=== PATIENT | female | born 1950 | race Caucasian/White ===

== ENCOUNTER → 2016-08-28 | Outpatient (CLI) | payer OTHER ==
[2016-08-28 08:18] LABS: ALANINE AMINOTRANSFERASE 33 U/L (9-52); ALBUMIN 4.5 g/dL (3.5-5.0); ALKALINE PHOSPHATASE 69 U/L (38-126); ANION GAP 12 (5-19); ASPARTATE AMINO TRANSFERASE 21 U/L (14-36); BILIRUBIN,DIRECT 0.1 mg/dL (0.0-0.4); BILIRUBIN,TOTAL 0.3 mg/dL (0.2-1.3); BLOOD UREA NITROGEN 20 mg/dL (7-20); CALCIUM 9.9 mg/dL (8.4-10.2); CARBON DIOXIDE 27 mmol/L (22-30); CHLORIDE 104 mmol/L (98-107); GLUCOSE 169 mg/dL (75-110); POTASSIUM 4.4 mmol/L (3.6-5.0); SODIUM 142.8 mmol/L (137-145)
== END ==
LOC: OD 07:00
PROVIDERS: ATTEND Internal Medicine
DX: I10 Essential (primary) hypertension (principal); E11.9 Type 2 diabetes mellitus without complications
CPT/HCPCS: 36415; 80053; 83036

== ENCOUNTER → 2017-01-02 | Outpatient (CLI) | payer OTHER ==
--- NOTE | 2017-01-02 14:19 | RADIOLOGY REPORT (SQ) ---
EXAM DESCRIPTION: MRI LT LOWER JOINT WITHOUT COMPLETED DATE/TIME: 01/02/2017 8:56 am REASON FOR STUDY: UNSPECIFIED INTERNAL DERANGEMENT OF LEFT KNEE M23.92 UNSPECIFIED INTERNAL DERANGE MENT OF LEFT KNEE COMPARISON: None. TECHNIQUE: Rightknee images acquired and stored on PACS. Multiplanar images include fat sensitive s equences as T1, water sensitive sequences as FST2 or STIR, cartilage sensitive sequences as FSPD, and gradient echo sequences. LIMITATIONS: None. FINDINGS: JOINT AND BURSAE: Small suprapatellar knee joint effusion. Huge White's cyst internal sep tations, 10 cm craniocaudad x 3.5 cm AP x 2 cm transverse. BONE CORTEX AND MARROW: No alteration of signal to suggest marrow replacement. No worrisome bone lesi ons. No occult fracture. ACL: Intact. No degeneration or ganglion cyst. PCL: Intact. MCL: Intact. No periligamentous edema or fluid. LCL: Intact. No periligamentous edema or fluid. MEDIAL MENISCUS: There is diffuse abnormal increased intrameniscal signal in the mid body and posteri or horn medial meniscus, with a tear of the inferior articular surface best shown on sagittal images 3-7. No parameniscal cyst. LATERAL MENISCUS: No tears. No abnormal signal. MEDIAL COMPARTMENT: High-grade chondromalacia with a [id number] appearance, reactive subcortical ed glenny in the medial femoral condyle and medial tibial plateau weight-bearing surfaces. This is best sh own on coronal T2 image 14 through 17. Minimal medial compartment bony spurring. LATERAL COMPARTMENT: Cartilage preserved. No bone bruises or reactive marrow edema. No osteophytes. PATELLA: No chondromalacia. No subchondral cysts. Medial and lateral retinacula intact. EXTENSOR MECHANISM: Intact. Quadriceps and patella tendons normal. SOFT TISSUES: Adjacent muscles and subcutaneous tissues normal. Normal flow void in popliteal artery and vein. OTHER: No other significant finding. IMPRESSION: Osteoarthritis medial compartment Degenerative medial meniscal tear Large White's cyst medial popliteal fossa TECHNICAL DOCUMENTATION: JOB ID: [id number] [employer]- All Rights Reserved
== END ==
LOC: RAD 07:44
PROVIDERS: ATTEND Physician Assistant
DX: M23.92 Unspecified internal derangement of left knee (principal)

== ENCOUNTER → 2017-03-16 | Outpatient (CLI) | payer OTHER ==
[2017-03-16 08:26] LABS: ALANINE AMINOTRANSFERASE 36 U/L (9-52); ALBUMIN 4.4 g/dL (3.5-5.0); ALKALINE PHOSPHATASE 75 U/L (38-126); ANION GAP 13 (5-19); ASPARTATE AMINO TRANSFERASE 18 U/L (14-36); BILIRUBIN,DIRECT 0.4 mg/dL (0.0-0.4); BILIRUBIN,TOTAL 0.4 mg/dL (0.2-1.3); BLOOD UREA NITROGEN 27 mg/dL (7-20); CARBON DIOXIDE 26 mmol/L (22-30); CHLORIDE 105 mmol/L (98-107); CHOLESTEROL 173.06 mg/dL (0-200); CREATININE RESULT 0.78 mg/dL (0.52-1.25); Direct HDL 60 mg/dL (>40); GLUCOSE 214 mg/dL (75-110); POTASSIUM 4.9 mmol/L (3.6-5.0); TOTAL PROTEIN 6.9 g/dL (6.3-8.2); TRIGLYCERIDES 122 mg/dL (<150)
[2017-03-16 08:37] LABS: DIRECT LDL 89 mg/dL (<100)
== END ==
LOC: OD 07:11
PROVIDERS: ATTEND Internal Medicine
DX: I10 Essential (primary) hypertension (principal); E78.2 Mixed hyperlipidemia; D03.62 Melanoma in situ of left upper limb, including shoulder; E11.9 Type 2 diabetes mellitus without complications
CPT/HCPCS: 36415; 80053; 80061; 82043; 83036

== ENCOUNTER → 2017-07-26 | Outpatient (CLI) | payer OTHER ==
[2017-07-26 08:25] LABS: ALANINE AMINOTRANSFERASE 34 U/L (9-52); ALBUMIN 4.1 g/dL (3.5-5.0); ALKALINE PHOSPHATASE 58 U/L (38-126); ANION GAP 14 (5-19); ASPARTATE AMINO TRANSFERASE 24 U/L (14-36); BILIRUBIN,DIRECT 0.3 mg/dL (0.0-0.4); BILIRUBIN,TOTAL 0.3 mg/dL (0.2-1.3); BLOOD UREA NITROGEN 21 mg/dL (7-20); CALCIUM 9.9 mg/dL (8.4-10.2); CARBON DIOXIDE 25 mmol/L (22-30); CHLORIDE 104 mmol/L (98-107); GLUCOSE 189 mg/dL (75-110); POTASSIUM 4.4 mmol/L (3.6-5.0); TOTAL PROTEIN 6.8 g/dL (6.3-8.2); TRIGLYCERIDES 82 mg/dL (<150)
[2017-07-26 08:36] LABS: DIRECT LDL 86 mg/dL (<100)
== END ==
LOC: OD 07:11
PROVIDERS: ATTEND Internal Medicine
DX: I10 Essential (primary) hypertension (principal); E78.2 Mixed hyperlipidemia; E11.9 Type 2 diabetes mellitus without complications
CPT/HCPCS: 36415; 80053; 80061; 82043; 83036

== ENCOUNTER → 2018-01-24 | Outpatient (CLI) | payer OTHER ==
[2018-01-24 09:25] LABS: ALANINE AMINOTRANSFERASE 21 U/L (9-52); ALKALINE PHOSPHATASE 60 U/L (38-126); ANION GAP 8 (5-19); ASPARTATE AMINO TRANSFERASE 19 U/L (14-36); BILIRUBIN,DIRECT 0.3 mg/dL (0.0-0.4); BILIRUBIN,TOTAL 0.4 mg/dL (0.2-1.3); BLOOD UREA NITROGEN 18 mg/dL (7-20); CALCIUM 9.1 mg/dL (8.4-10.2); CARBON DIOXIDE 26 mmol/L (22-30); CHLORIDE 106 mmol/L (98-107); CHOLESTEROL 167.13 mg/dL (0-200); GLUCOSE 176 mg/dL (75-110); POTASSIUM 4.3 mmol/L (3.6-5.0); SODIUM 140.2 mmol/L (137-145); TOTAL PROTEIN 6.9 g/dL (6.3-8.2); TRIGLYCERIDES 99 mg/dL (<150)
[2018-01-24 09:36] LABS: DIRECT LDL 87 mg/dL (<100)
== END ==
LOC: OD 07:07
PROVIDERS: ATTEND Internal Medicine
DX: E11.9 Type 2 diabetes mellitus without complications (principal); E78.2 Mixed hyperlipidemia
CPT/HCPCS: 36415; 80053; 80061; 83036

== ENCOUNTER → 2018-08-16 | Outpatient (CLI) | payer OTHER ==
[2018-08-16 07:50] LABS: ABSOLUTE EOSINOPHILS # (AUTO) 0.1 10^3/uL (0.0-0.6); ABSOLUTE MONOCYTES (AUTO) 0.4 10^3/uL (0.1-1.4); ABSOLUTE NEUT (AUTO) 2.1 10^3/uL (1.7-8.2); BASOPHILS % (AUTO) 0.8 % (0-2); HEMATOCRIT 37.5 % (36.0-47.0); HEMOGLOBIN 12.9 g/dL (12.0-15.5); LYMPHOCYTES % (AUTO) 28.8 % (13-45); MEAN CORPUSCULAR HGB CONC 34.6 g/dL (32.0-36.0); MEAN CORPUSCULAR VOLUME 90 fl (80-97); MONOCYTES % (AUTO) 11.9 % (3-13); PLATELET COUNT 237 10^3/uL (150-450); RED BLOOD COUNT 4.17 10^6/uL (3.72-5.28); RED CELL DISTRIBUTION WIDTH 13.5 % (11.5-14.0); SEGMENTED NEUTROPHILS % (AUTO) 56.5 % (42-78); TOTAL CELLS COUNTED % (AUTO) 100 %; WHITE BLOOD COUNT 3.6 10^3/uL (4.0-10.5)
[2018-08-16 08:00] LABS: ALANINE AMINOTRANSFERASE 30 U/L (9-52); ALBUMIN 4.1 g/dL (3.5-5.0); ALKALINE PHOSPHATASE 72 U/L (38-126); ANION GAP 10 (5-19); ASPARTATE AMINO TRANSFERASE 19 U/L (14-36); BILIRUBIN,DIRECT 0.2 mg/dL (0.0-0.4); BILIRUBIN,TOTAL 0.3 mg/dL (0.2-1.3); BLOOD UREA NITROGEN 25 mg/dL (7-20); CALCIUM 9.9 mg/dL (8.4-10.2); CARBON DIOXIDE 28 mmol/L (22-30); CHLORIDE 103 mmol/L (98-107); CHOLESTEROL 151.91 mg/dL (0-200); GLUCOSE 191 mg/dL (75-110); POTASSIUM 4.7 mmol/L (3.6-5.0); SODIUM 140.6 mmol/L (137-145); TOTAL PROTEIN 6.7 g/dL (6.3-8.2); TRIGLYCERIDES 143 mg/dL (<150)
[2018-08-16 08:10] LABS: DIRECT LDL 82 mg/dL (<100)
[2018-08-17 10:38] LABS: MICROALBUMIN URINE 26.6 ug/mL (Not Estab.)
== END ==
LOC: OD 07:05
PROVIDERS: ATTEND Physician Assistant
DX: Z12.11 Encounter for screening for malignant neoplasm of colon (principal); E11.9 Type 2 diabetes mellitus without complications; E78.2 Mixed hyperlipidemia; Z79.899 Other long term (current) drug therapy
CPT/HCPCS: 36415; 80053; 80061; 82043; 82570; 83036; 84443; 85025

== ENCOUNTER → 2019-02-28 | Outpatient (CLI) | payer OTHER ==
[2019-02-28 08:44] LABS: ALBUMIN 4.2 g/dL (3.5-5.0); ALKALINE PHOSPHATASE 70 U/L (38-126); ASPARTATE AMINO TRANSFERASE 24 U/L (14-36); CARBON DIOXIDE 25 mmol/L (22-30); GLUCOSE 223 mg/dL (75-110); POTASSIUM 4.8 mmol/L (3.6-5.0)
[2019-02-28 08:55] LABS: ANION GAP 9 (5-19); BILIRUBIN,DIRECT 0.1 mg/dL (0.0-0.4); BILIRUBIN,TOTAL 0.4 mg/dL (0.2-1.3); BLOOD UREA NITROGEN 33 mg/dL (7-20); CALCIUM 9.9 mg/dL (8.4-10.2); CHLORIDE 103 mmol/L (98-107); CHOLESTEROL 163.67 mg/dL (0-200); DIRECT LDL 93 mg/dL (<100); TOTAL PROTEIN 6.9 g/dL (6.3-8.2); TRIGLYCERIDES 110 mg/dL (<150)
[2019-03-01 12:36] LABS: MICROALBUMIN URINE 6.7 ug/mL (Not Estab.)
== END ==
LOC: OD 07:11
PROVIDERS: ATTEND Internal Medicine
DX: E11.69 Type 2 diabetes mellitus with other specified complication (principal); E78.2 Mixed hyperlipidemia
CPT/HCPCS: 36415; 80053; 80061; 82043; 82570; 83036

== ENCOUNTER → 2019-08-07 | Outpatient (CLI) | payer OTHER ==
[2019-08-07 09:13] LABS: ALBUMIN 4.3 g/dL (3.5-5.0); ALKALINE PHOSPHATASE 71 U/L (38-126); ANION GAP 8 (5-19); ASPARTATE AMINO TRANSFERASE 23 U/L (14-36); BILIRUBIN,TOTAL 0.3 mg/dL (0.2-1.3); BLOOD UREA NITROGEN 24 mg/dL (7-20); CALCIUM 9.9 mg/dL (8.4-10.2); CARBON DIOXIDE 28 mmol/L (22-30); CHLORIDE 101 mmol/L (98-107); CHOLESTEROL 155.75 mg/dL (0-200); GLUCOSE 194 mg/dL (75-110); POTASSIUM 4.8 mmol/L (3.6-5.0); TRIGLYCERIDES 124 mg/dL (<150)
[2019-08-07 09:40] LABS: DIRECT LDL 81 mg/dL (<100)
[2019-08-08 11:37] LABS: CREATININE URINE 103.5 mg/dL (Not Estab.)
== END ==
LOC: OD 07:03
PROVIDERS: ATTEND Physician Assistant
DX: E11.69 Type 2 diabetes mellitus with other specified complication (principal); E78.2 Mixed hyperlipidemia; I10 Essential (primary) hypertension; Z79.899 Other long term (current) drug therapy
CPT/HCPCS: 36415; 80053; 80061; 82043; 82570; 83036; 84443

== ENCOUNTER → 2020-02-12 | Outpatient (CLI) | payer OTHER ==
[2020-02-12 08:56] LABS: ALBUMIN 4.3 g/dL (3.5-5.0); ALKALINE PHOSPHATASE 72 U/L (38-126); ANION GAP 8 (5-19); ASPARTATE AMINO TRANSFERASE 27 U/L (14-36); BILIRUBIN,DIRECT 0.3 mg/dL (0.0-0.4); BILIRUBIN,TOTAL 0.6 mg/dL (0.2-1.3); BLOOD UREA NITROGEN 30 mg/dL (7-20); CALCIUM 9.5 mg/dL (8.4-10.2); CARBON DIOXIDE 25 mmol/L (22-30); CHLORIDE 104 mmol/L (98-107); CHOLESTEROL 160.73 mg/dL (0-200); GLUCOSE 220 mg/dL (75-110); POTASSIUM 4.8 mmol/L (3.6-5.0); TOTAL PROTEIN 6.9 g/dL (6.3-8.2); TRIGLYCERIDES 125 mg/dL (<150)
[2020-02-12 09:07] LABS: DIRECT LDL 80 mg/dL (<100)
== END ==
LOC: OD 07:02
PROVIDERS: ATTEND Internal Medicine
DX: E11.69 Type 2 diabetes mellitus with other specified complication (principal); E78.2 Mixed hyperlipidemia
CPT/HCPCS: 36415; 80053; 80061; 83036